=== PATIENT | male | born 1970 | race Hispanic/Latino ===

== ENCOUNTER 2019-05-27 13:12 | Emergency (ER) | payer OTHER ==
[2019-05-27 13:42] LABS: Bilirubin Small (Negative); Blood, Urine Large (Negative); Clarity Slightly Cloudy (Clear); Glucose, Urine (Dipstick) 250 mg/dL (Negative); Leukocyte Small (Negative); Nitrite Negative (Negative); Protein, Urine (Dipstick) > or equal to 300 mg/dL (Neg-Trace)
[2019-05-27 13:54] LABS: Bacteria/HPF Rare-Few HPF (None Seen); Squamous Epithelial 0-3 HPF (0-3); WBC/HPF Greater Than 50 HPF (0-3)
[2019-05-27 13:55] LABS: RBC/HPF 21-50 HPF (0-3)
[2019-05-27] MEDS ORDERED: Sulfameth/Trimethoprim DS 800-160mg TAB ONE (14:21)
== END 2019-05-27 14:40 | disposition home or self-care (01) ==
LOC: NAV ERS 13:12
DX: N39.0 Urinary tract infection, site not specified (principal); F17.210 Nicotine dependence, cigarettes, uncomplicated; Z71.6 Tobacco abuse counseling
CPT/HCPCS: 81003; 81015; 87077; 87086; 99406

== ENCOUNTER 2020-08-31 22:08 | Emergency (ER) | payer OTHER, SELFPAY ==
[2020-08-31] MEDS ORDERED: Sodium Chloride 0.9% 1,000 ML ONE (22:45)
[2020-08-31 22:47] LABS: #Basophils 0.1 thou/uL (0.0-0.2); #Eosinphils 0.1 thou/uL (0.0-0.7); #Lymphocytes 1.3 thou/uL (1.20-3.40); #Neutrophils 9.7 thou/uL (1.40-6.50); %Basophils 0.7 % (0.0-1.0); %Eosinophils 0.7 % (0.0-10.0); %Lymphocytes 10.3 % (21.0-51.0); %Monocytes 8.5 % (0.0-10.0); %Neutrophils 79.7 % (42.0-75.0); Hemoglobin 14.9 g/dL (14.0-18.0); Mean Corpuscular Hemoglobin 31.1 pg (27.0-31.0); Mean Corpuscular Volume 88.9 fL (78.0-98.0); Mean Platelet Volume 7.4 fL (7.4-10.4); Platelet Count 256 thou/uL (130-400); RBC Distribution Width 10.7 % (11.5-14.5); Red Blood Cell (RBC) Count 4.79 mill/uL (4.70-6.10); White Blood Cell (WBC) Count 12.2 thou/uL (4.8-10.8)
[2020-08-31 23:01] LABS: PTT 30.9 sec (22.9-36.1)
[2020-08-31 23:02] LABS: D-Dimer Test 1.68 *mcg/mL (0.27-0.43); Prothrombin Time 13.5 sec (12.0-14.7)
[2020-08-31 23:05] LABS: ALT (SGPT) 19 U/L (8-55); AST (SGOT) 16 U/L (5-34); Albumin 3.3 g/dL (3.5-5.0); Alkaline Phosphatase 107 U/L (40-110); Anion Gap 16 mmol/L (10-20); BUN (Urea Nitrogen) 11 mg/dL (8.9-20.6); Bilirubin, Total 0.6 mg/dL (0.2-1.2); Calc. Creatinine Clearance 0 mL/min (70-130); Calcium 8.7 mg/dL (7.8-10.44); Carbon Dioxide 21 mmol/L (22-29); Chloride 101 mmol/L (98-107); Critical Call Chemistry 2258 DNO; Globulin 2.8 g/dL (2.4-3.5); Glucose 440 mg/dL (70-105); Lipase 24 U/L (8-78); Magnesium 2.1 mg/dL (1.6-2.6); Potassium 2.8 mmol/L (3.5-5.1); Protein, Total 6.1 g/dL (6.0-8.3); Sodium 135 mmol/L (136-145)
[2020-08-31 23:07] LABS: Critical Call Chem Troponin I 2305 ERPHY
[2020-08-31 23:23] LABS: CKMB 1.7 ng/mL (0-6.6)
== END 2020-08-31 23:37 | disposition short-term general hospital (02) ==
LOC: NAV ERS 22:08
DX: I21.3 ST elevation (STEMI) myocardial infarction of unspecified site (principal); R73.9 Hyperglycemia, unspecified; E87.6 Hypokalemia; R91.8 Other nonspecific abnormal finding of lung field; F17.210 Nicotine dependence, cigarettes, uncomplicated
CPT/HCPCS: 71045; 80053; 82553; 83690; 83735; 83880; 84484; 85025; 85379; 85610; 85730; 93005; 94760; J7050

== ENCOUNTER 2021-11-19 22:14 | Emergency (ER) | payer SELFPAY ==
[2021-11-19] MEDS ORDERED: Cephalexin 250 MG CAP ONE (23:10)
== END 2021-11-19 23:15 | disposition home or self-care (01) ==
LOC: NAV ERS 22:14
DX: S90.31XA Contusion of right foot, initial encounter (principal); E11.9 Type 2 diabetes mellitus without complications; W20.8XXA Other cause of strike by thrown, projected or falling object, initial encounter; I25.2 Old myocardial infarction; F17.210 Nicotine dependence, cigarettes, uncomplicated; Z79.899 Other long term (current) drug therapy; Z79.84 Long term (current) use of oral hypoglycemic drugs; Z79.82 Long term (current) use of aspirin

== ENCOUNTER 2024-04-09 15:33 | Emergency (ER) | payer SELFPAY ==
[2024-04-09 16:42] LABS: #Basophils 0.1 thou/uL (0.0-0.2); #Eosinophils 0.2 thou/uL (0.0-0.7); #Lymphocytes 1.6 thou/uL (1.20-3.40); #Monocytes 0.6 thou/uL (0.11-0.59); #Neutrophils 5.8 thou/uL (1.40-6.50); %Basophils 0.7 % (0.0-1.0); %Eosinophils 2.7 % (0.0-10.0); %Lymphocytes 19.7 % (21.0-51.0); %Monocytes 6.7 % (0.0-10.0); %Neutrophils 70.3 % (42.0-75.0); Hemoglobin 17.6 g/dL (14.0-18.0); Mean Corpuscular HGB CONC 33.8 g/dL (32.0-36.0); Mean Corpuscular Hemoglobin 30.2 pg (27.0-31.0); Mean Corpuscular Volume 89.5 fl (78.0-98.0); Mean Platelet Volume 9.1 fL (7.4-10.4); Platelet Count 157 10x3/uL (130-400); RBC Distribution Width 10.9 % (11.5-14.5); Red Blood Cell (RBC) Count 5.82 mill/uL (4.70-6.10); White Blood Cell (WBC) Count 8.3 10x3/uL (4.8-10.8)
[2024-04-09 16:55] LABS: Anion Gap 14 mmol/L (10-20); BUN (Urea Nitrogen) 13 mg/dL (8.4-25.7); Calc. Creatinine Clearance 0 mL/min (70-130); Calcium 8.9 mg/dL (7.8-10.44); Carbon Dioxide 21 mmol/L (22-29); Chloride 104 mmol/L (98-107); Estimated GFR 104; Glucose 302 mg/dL (70-105); Potassium 3.9 mmol/L (3.5-5.1); Sodium 135 mmol/L (136-145)
[2024-04-09] MEDS ORDERED: Cephalexin 250 MG CAP ONE (17:40)
[2024-04-09] MEDS ORDERED: Sulfameth/Trimethoprim DS 800-160mg TAB ONE (17:40)
== END 2024-04-09 17:50 | disposition home or self-care (01) ==
LOC: NAV ERS 15:33
DX: L03.116 Cellulitis of left lower limb (principal); E11.9 Type 2 diabetes mellitus without complications; I25.10 Atherosclerotic heart disease of native coronary artery without angina pectoris; F17.210 Nicotine dependence, cigarettes, uncomplicated; Z79.899 Other long term (current) drug therapy; Z79.82 Long term (current) use of aspirin
CPT/HCPCS: 80048; 83605; 85025; 99283